=== PATIENT | female | born 1990 | race Caucasian/White ===

== ENCOUNTER 2017-01-18 09:17 | Day surgery (SDC) | payer MEDICAID, OTHER ==
[2017-01-17 08:17] VITALS: BMI 25.1
[~2017-01-18 09:17] MED LIST: LACTATED RINGERS 1,000 ML IV SCH
[2017-01-18 09:46] VITALS: RESP 16; TEMP 97
[2017-01-18] MEDS ORDERED: LIDOCAINE 1% INJ 10MG/ML (20 ML MDV) ONE (10:32)
[2017-01-18] MEDS ORDERED: PROPOFOL 10 MG/ML 20 ML VIAL IV ONE ×2 (10:32)
[2017-01-18 11:12] VITALS: BP 105/61; PULSE 68
--- NOTE | 2017-01-18 11:32 | P.PCN ---
Date of Procedure: 01/18/17 Procedure(s) Performed: BRIEF HISTORY: Patient is a 26-year-old pleasant white female, scheduled for an elective colonoscopy as a part of evaluation of intermittent rectal bleeding for the last 6 months duration. Her first cousin was recently diagnosed with colon cancer at age 32. Because of the ongoing rectal bleeding she is scheduled for colonoscopy to evaluate further. PROCEDURE PERFORMED: Colonoscopy snare polypectomy. PREOPERATIVE DIAGNOSIS: Intermittent rectal bleeding of 6 months duration. IV sedation per Anesthesia. PROCEDURE: After informed consent was obtained, the patient, was brought into the endoscopy unit. IV conscious sedation was administered by Anesthesia under continuous monitoring. Initially the Olympus CF-160 flexible video colonoscope was then inserted in the rectum, gradually advanced into the cecum without any difficulty. Careful examination was performed as the scope was gradually being withdrawn. Ileocecal valve and the appendiceal orifice were visualized and appeared normal. Prep was excellent. Mucosa of the cecum, ascending colon, appeared normal . In the proximal transverse colon there was a 2 cm flat/broad- based polyp that was removed by piecemeal snare polypectomy and complete polypectomy was accomplished. The transverse colon, descending colon, appeared normal. In the sigmoid colon at 35 to the medicine the anal verge there was a 3 cm pedunculated polyp that was removed by snare polypectomy. The rest of the sigmoid colon, and rectum appeared normal. Retroflexion was performed in the rectum and no lesions were seen. The patient tolerated the procedure well. IMPRESSION: 3 cm pedunculated sigmoid colon polyp status post polypectomy 2 cm broad-based transverse colon polyp status post polypectomy RECOMMENDATIONS: Findings of this examination were discussed with the patient as well as a family. She was advised to follow with the biopsy results. Based on the biopsy results will plan a repeat colonoscopy in 2 years.
== END 2017-01-18 11:49 | disposition home or self-care (01) ==
LOC: ORWHC2ENDO 09:17
PROVIDERS: ATTEND Internal Medicine Gastroenterology
DX: D12.5 Benign neoplasm of sigmoid colon (principal); D12.3 Benign neoplasm of transverse colon; Z87.19 Personal history of other diseases of the digestive system; Z80.0 Family history of malignant neoplasm of digestive organs; Z79.899 Other long term (current) drug therapy; Z88.1 Allergy status to other antibiotic agents
CPT/HCPCS: 81025; 88305; 45385; J2001; J2704

== ENCOUNTER → 2017-07-05 | Outpatient (CLI) | payer OTHER ==
--- NOTE | 2017-07-05 12:52 | US ---
EXAMINATION TYPE: US axilla extremity RT DATE OF EXAM: 07/05/2017 COMPARISON: NONE CLINICAL HISTORY: Localized swelling, mass and lump R22.9. Palpable x 2 weeks right axilla. US findings: Hyperechoic, oval, solid mass at patient's c/o palpable = 1.1 x 0.6 x 0.3cm and has lip jeri appearance by US. No flow is seen to this lesion. IMPRESSION: Circumscribed hyperechoic, avascular superficial subcutaneous 1.1 cm right axillary mass in the region of the patient's palpable abnormality is most sonographically consistent with a lipoma .
== END | disposition home or self-care (01) ==
LOC: RADUSWWP 12:12
PROVIDERS: ATTEND Internal Medicine
DX: R22.31 Localized swelling, mass and lump, right upper limb (principal)

== ENCOUNTER 2017-12-18 10:43 | Emergency (ER) | payer OTHER ==
[2017-12-18 11:06] VITALS: RESP 16
[2017-12-18 11:28] LABS: Appearance,Urine Clear (Clear); Bilirubin,Urine Negative (Negative); Blood,Urine Negative (Negative); Color,Urine Colorless; Glucose,Urine (UA) Negative (Negative); Ketones,Urine Negative (Negative); Leukocyte Esterase,Urine Negative (Negative); Nitrite,Urine Negative (Negative); Protein,Urine Negative (Negative); Specific Gravity,Urine 1.002 (1.001-1.035); Urobilinogen,Urine <2.0 mg/dL (<2.0)
--- NOTE | 2017-12-18 11:37 | ED ---
General Adult HPI - General Chief complaint: Back Pain/Injury Stated complaint: Abdominal pain, Time Seen by Provider: 12/18/17 11:24 Source: patient, RN notes reviewed Mode of arrival: ambulatory Limitations: no limitations - History of Present Illness Initial comments: Patient's a 27-year-old female who is G4, P3, presenting to the emergency room today with chief complaint of lower abdominal pain and back pain. She does admit that symptoms started 2 days ago. States going from work had increased abdominal pain the last 45 minutes. Since then went away. She states that she did check a test yesterday which was positive. She states that she felt this explains symptoms. 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 States she called her family doctor to make an appointment in the advised her to come here to the emergency room for evaluation. Patient denies any vaginal bleeding or discharge. She states she has not taken anything for pain. Has declined any pain medication. Patient denies any recent fever, chills, shortness of breath, chest pain, nausea or vomiting, numbness or tingling, dysuria or hematuria, constipation or diarrhea, headaches or visual changes, or any other complaints. - Related Data Home Medications Medication Instructions Recorded Confirmed Citalopram Hydrobromide [CeleXA] 10 mg PO DAILY 08/10/15 12/18/17 Allergies Allergy/AdvReac Type Severity Reaction Status Date / Time amoxicillin [Amoxicillin] Allergy Rash/Hives Verified 12/18/17 12:15 Review of Systems ROS Statement: Those systems with pertinent positive or pertinent negative responses have been documented in the HPI. ROS Other: All systems not noted in ROS Statement are negative. Past Medical History Past Medical History: Asthma Additional Past Medical History / Comment(s): occult blood in stool History of Any Multi-Drug Resistant Organisms: None Reported Past Surgical History: Orthopedic Surgery Additional Past Surgical History / Comment(s): ganglion cyst removed from L wrist Past Anesthesia/Blood Transfusion Reactions: No Reported Reaction Past Psychological History: Anxiety, Depression Smoking Status: Never smoker Past Alcohol Use History: None Reported Past Drug Use History: None Reported - Past Family History Father Family Medical History: No Reported History General Exam - General Exam Comments Initial Comments: General: The patient is awake and alert, in no distress, and does not appear acutely ill. Eye: Pupils are equal, round and reactive to light, extra-ocular movements are intact. No nystagmus. There is normal conjunctiva bilaterally. No signs of icterus. Ears, nose, mouth and throat: There are moist mucous membranes and no oral lesions. Neck: The neck is supple, there is no tenderness or JVD. Cardiovascular: There is a regular rate and rhythm. No murmur, rub or gallop is appreciated. Respiratory: Lungs are clear to auscultation, respirations are non-labored, breath sounds are equal. No wheezes, stridor, rales, or rhonchi. Gastrointestinal: Normal appearance of the abdomen. Normal bowel sounds. Soft on palpation. Patient does have mild tenderness lower abdomen. No rebound or guarding. No CVA tenderness. Musculoskeletal: Normal ROM, no tenderness. Strength 5/5. Sensation intact. Pulses equal bilaterally 2+. Neurological: A&O x 3. CN II-XII intact, There are no obvious motor or sensory deficits. Coordination appears grossly intact. Speech is normal. Skin: Skin is warm and dry and no rashes or lesions are noted. Psychiatric: Cooperative, appropriate mood & affect, normal judgment. Limitations: no limitations Course Vital Signs 12/18/17 11:02 Temperature 97.8 F Pulse Rate 77 Respiratory 16 Rate Blood Pressure 139/88 O2 Sat by Pulse 98 Oximetry Medical Decision Making - Medical Decision Making Patient reexamined at this time shows no signs of distress she is resting comfortably in the stretcher. Abdomen soft nontender on exam. Patient ultrasound shows no IUP. No free fluid. No direct evidence of ectopic. Patient's beta hCG is 270 today. Remaining blood work is unremarkable. At this time patient will be discharged home to have repeat beta hCG in the next 2 days. She is advised follow-up with her PHARMACY ASSOCIATE. She states she's Lenzmeier. Advised patient to return to emergency room for any increase or worsening of symptoms. Patient denies any vaginal bleeding or discharge at this time. Rh-. Patient states understanding and is in agreement. - Lab Data Result diagrams: 12/18/17 11:40 12/18/17 11:40 Lab Results 12/18/17 12/18/17 12/18/17 Range/Units 11:00 11:00 11:40 WBC 7.5 (3.8-10.6) k/uL RBC 4.94 (3.80-5.40) m/uL Hgb 14.4 (11.4-16.0) gm/dL Hct 42.8 (34.0-46.0) % MCV 86.7 (80.0-100.0) fL MCH 29.2 (25.0-35.0) pg MCHC 33.6 (31.0-37.0) g/dL RDW 12.9 (11.5-15.5) % Plt Count 294 (150-450) k/uL Neutrophils % 69 % Lymphocytes % 24 % Monocytes % 4 % Eosinophils % 1 % Basophils % 1 % Neutrophils # 5.1 (1.3-7.7) k/uL Lymphocytes # 1.8 (1.0-4.8) k/uL Monocytes # 0.3 (0-1.0) k/uL Eosinophils # 0.1 (0-0.7) k/uL Basophils # 0.0 (0-0.2) k/uL Sodium (137-145) mmol/L Potassium (3.5-5.1) mmol/L Chloride (98-107) mmol/L Carbon Dioxide (22-30) mmol/L Anion Gap mmol/L BUN (7-17) mg/dL Creatinine (0.52-1.04) mg/dL Est GFR (MDRD) Af Amer (>60 ml/min/1.73 sqM) Est GFR (MDRD) Non-Af (>60 ml/min/1.73 sqM) Glucose (74-99) mg/dL Calcium (8.4-10.2) mg/dL Total Bilirubin (0.2-1.3) mg/dL AST (14-36) U/L ALT (9-52) U/L Alkaline Phosphatase (38-126) U/L Total Protein (6.3-8.2) g/dL Albumin (3.5-5.0) g/dL HCG, Quant mIU/mL Urine Color Colorless Urine Appearance Clear (Clear) Urine pH 6.0 (5.0-8.0) Ur Specific Valders 1.002 (1.001-1.035) Urine Protein Negative (Negative) Urine Glucose (UA) Negative (Negative) Urine Ketones Negative (Negative) Urine Blood Negative (Negative) Urine Nitrite Negative (Negative) Urine Bilirubin Negative (Negative) Urine Urobilinogen <2.0 (<2.0) mg/dL Ur Leukocyte Esterase Negative (Negative) Urine HCG, Qual Detected (Not Detectd) Blood Type Blood Type Recheck 12/18/17 12/18/17 Range/Units 11:40 11:40 WBC (3.8-10.6) k/uL RBC (3.80-5.40) m/uL Hgb (11.4-16.0) gm/dL Hct (34.0-46.0) % MCV (80.0-100.0) fL MCH (25.0-35.0) pg MCHC (31.0-37.0) g/dL RDW (11.5-15.5) % Plt Count (150-450) k/uL Neutrophils % % Lymphocytes % % Monocytes % % Eosinophils % % Basophils % % Neutrophils # (1.3-7.7) k/uL Lymphocytes # (1.0-4.8) k/uL Monocytes # (0-1.0) k/uL Eosinophils # (0-0.7) k/uL Basophils # (0-0.2) k/uL Sodium 143 (137-145) mmol/L Potassium 3.8 (3.5-5.1) mmol/L Chloride 105 (98-107) mmol/L Carbon Dioxide 24 (22-30) mmol/L Anion Gap 14 mmol/L BUN 11 (7-17) mg/dL Creatinine 0.70 (0.52-1.04) mg/dL Est GFR (MDRD) Af Amer >60 (>60 ml/min/1.73 sqM) Est GFR (MDRD) Non-Af >60 (>60 ml/min/1.73 sqM) Glucose 91 (74-99) mg/dL Calcium 9.5 (8.4-10.2) mg/dL Total Bilirubin 0.4 (0.2-1.3) mg/dL AST 20 (14-36) U/L ALT 17 (9-52) U/L Alkaline Phosphatase 72 (38-126) U/L Total Protein 7.7 (6.3-8.2) g/dL Albumin 4.7 (3.5-5.0) g/dL HCG, Quant 270.2 mIU/mL Urine Color Urine Appearance (Clear) Urine pH (5.0-8.0) Ur Specific Valders (1.001-1.035) Urine Protein (Negative) Urine Glucose (UA) (Negative) Urine Ketones (Negative) Urine Blood (Negative) Urine Nitrite (Negative) Urine Bilirubin (Negative) Urine Urobilinogen (<2.0) mg/dL Ur Leukocyte Esterase (Negative) Urine HCG, Qual (Not Detectd) Blood Type O Negative Blood Type Recheck No Disposition Clinical Impression: Threatened Disposition: HOME SELF-CARE Condition: Good Instructions: Threatened Miscarriage (ED) Additional Instructions: Please have repeat lab work in 2 days. Please follow-up with PHARMACY ASSOCIATE over the next 1-2 days. Please return to emergency room if the symptoms increase or worsen or for any other concerns. Referrals: Julieta Mooney MD [Primary Care Provider] - 1-2 days Bryan Burleson MD [STAFF PHYSICIAN] - 1-2 days Time of Disposition: 13:09
[2017-12-18 11:56] LABS: Basophils % (A) 1 %; Eosinophils # (A) 0.1 k/uL (0-0.7); Eosinophils % (A) 1 %; HCT 42.8 % (34.0-46.0); HGB 14.4 gm/dL (11.4-16.0); Lymphocytes # (A) 1.8 k/uL (1.0-4.8); Lymphocytes % (A) 24 %; MCH 29.2 pg (25.0-35.0); MCHC 33.6 g/dL (31.0-37.0); MCV 86.7 fL (80.0-100.0); Mean Platelet Volume 6.7; Monocytes # (A) 0.3 k/uL (0-1.0); Monocytes % (A) 4 %; Neutrophils # (A) 5.1 k/uL (1.3-7.7); Neutrophils % (A) 69 %; Platelet Count 294 k/uL (150-450); RBC 4.94 m/uL (3.80-5.40); RDW 12.9 % (11.5-15.5); WBC 7.5 k/uL (3.8-10.6)
[2017-12-18 12:06] LABS: ALT 17 U/L (9-52); AST 20 U/L (14-36); Albumin 4.7 g/dL (3.5-5.0); Alkaline Phosphatase 72 U/L (38-126); Anion Gap 14 mmol/L; Blood Urea Nitrogen 11 mg/dL (7-17); Calcium 9.5 mg/dL (8.4-10.2); Carbon Dioxide 24 mmol/L (22-30); Chloride 105 mmol/L (98-107); Glucose 91 mg/dL (74-99); Potassium 3.8 mmol/L (3.5-5.1); Sodium 143 mmol/L (137-145); Total Bilirubin 0.4 mg/dL (0.2-1.3); Total Protein 7.7 g/dL (6.3-8.2)
[2017-12-18 12:22] LABS: HCG,Quantitative Serum 270.2 mIU/mL
--- NOTE | 2017-12-18 12:48 | US ---
EXAMINATION TYPE: US OB <=14 wks transvag DATE OF EXAM: 12/18/2017 COMPARISON: NONE CLINICAL HISTORY: 27-year-old female with Pain. Date of LMP: 11/21/17 Beta HcG (if available): Not available at this time EXAM PERFORMED: Transabdominal (TA) FINDINGS: EXAM MEASUREMENTS: GESTATIONAL AGE / DATING Physician Established: Not yet established Dates by LMP: (3 weeks/6 days) EDC: 08/28/18 Dates by First Scan: No previous, this is first scan Dates by Current Scan for: Unable to date by today's study MATERNAL ANATOMY Uterus: 9.2 x 6.3 x 4.7 Endometrium: Thickened to the upper limits of normal at 1.6 cm. Right Ovary: 2.6 x 1.5 x 1.8cm Left Ovary: 3.2 x 1.6 x 1.4cm Post CDS / Adnexa: wnl Presence of free fluid: no GESTATION / SURVEY IUP: No IUP seen at this time Thickened endometrium. IMPRESSION: 1. No visualized intrauterine at this time. Correlate with beta hCG values. Less than 2000 is below the threshold for transvaginal ultrasound detection. 2. In the setting of a positive test, the differential includes too early to visualize intr auterine , failed , and nonvisualized ectopic.
[2017-12-18 13:39] VITALS: BP 127/64; PULSE 71; TEMP 97.6
== END 2017-12-18 13:38 | disposition home or self-care (01) ==
LOC: EC 10:43
DX: O20.0 Threatened abortion (principal); O99.341 Other mental disorders complicating pregnancy, first trimester; F41.9 Anxiety disorder, unspecified; F32.9 Major depressive disorder, single episode, unspecified; Z3A.01 Less than 8 weeks gestation of pregnancy; Z88.0 Allergy status to penicillin; Z79.899 Other long term (current) drug therapy
CPT/HCPCS: 36415; 76801; 80053; 81003; 81025; 84702; 85025; 86900; 86901; 87086; 99284

== ENCOUNTER 2018-08-21 06:01 | Inpatient (IN) | payer OTHER ==
[2018-08-21] MEDS ORDERED: LIDOCAINE 1% INJ 10MG/ML (20 ML MDV) SQ PRN (06:18)
[2018-08-21] MEDS ORDERED: METHYLERGONOVINE 0.2 MG/ML 1 ML AMP IM PRN (06:18)
[2018-08-21] MEDS ORDERED: CARBOPROST TROMETHAMINE 250 MCG/ML 1 ML AMP IM PRN (06:18)
[2018-08-21] MEDS ORDERED: CLINDAMYCIN 900 MG in DEXTROSE 5% IN WATER 50 ML IVPB STA ×2 (06:18)
[2018-08-21] MEDS ORDERED: TERBUTALINE 1 MG/ML VIAL SQ PRN (06:18)
[2018-08-21] MEDS ORDERED: OXYTOCIN 10 UNIT/ML 1 ML VIAL IM PRN (06:18)
[2018-08-21] MEDS ORDERED: OXYTOCIN 20 UNITS/1000 ML NS 1,000 ML IV SCH ×2 (06:30→15:45)
[2018-08-21 06:33] VITALS: BMI 30.9
[2018-08-21 06:41] LABS: Basophils % (A) 0 %; Eosinophils # (A) 0.1 k/uL (0-0.7); Eosinophils % (A) 1 %; HCT 33.9 % (34.0-46.0); HGB 11.3 gm/dL (11.4-16.0); Lymphocytes # (A) 1.3 k/uL (1.0-4.8); Lymphocytes % (A) 23 %; MCHC 33.4 g/dL (31.0-37.0); MCV 80.9 fL (80.0-100.0); Mean Platelet Volume 8.1; Monocytes # (A) 0.3 k/uL (0-1.0); Monocytes % (A) 5 %; Neutrophils # (A) 3.9 k/uL (1.3-7.7); Neutrophils % (A) 68 %; Platelet Count 228 k/uL (150-450); Poikilocytosis Slight; RBC 4.19 m/uL (3.80-5.40); RDW 14.5 % (11.5-15.5); WBC 5.8 k/uL (3.8-10.6)
[2018-08-21] MEDS: LACTATED RINGERS 1,000 ML IV SCH ×2 (06:46→14:54)
[2018-08-21] MEDS ORDERED: BUTORPHANOL 1 MG/ML 1 ML VIAL IV PRN (08:40)
--- NOTE | 2018-08-21 08:45 | P.HPOB ---
History of Present Illness H&P Date: 08/21/18 Chief Complaint: 39-0/7 weeks, elective induction The patient is a 28-year-old 4 para 3003 admitted at 39-0/7 weeks as established by last menstrual period and confirmed by 8 week ultrasound. She is admitted for elective induction of labor secondary to social circumstances with a close family member having surgery at the beginning of next week in another state. Her has been uncomplicated and group B strep status is positive. She did have an positive antibody screen early in the for antiacid which is clinically of little importance and was negative at repeat antibody screen at 28 weeks. She is also known to be Rh- and received RhoGAM at 28 weeks. Obstetrical history: 4 para 3003 with 3 term vaginal deliveries without complications. Current statistics are listed in history present illness. EDC of 08/28/2018 was established by last menstrual period and confirmed by 8 week ultrasound. Laboratory workup done traits of blood type of O- with a positive initial antibody screen for anti-S which was not found at repeat 28 week check. Remainder of her laboratory workup was within normal limits. One hour Glucola was normal and group B strep status is positive. Gynecologic history: Unremarkable with no history of any infections to include STDs. Review of Systems Review of systems is confined to history of present illness. Past Medical History Past Medical History: Asthma, Supraventricular Tachycardia (SVT) Additional Past Medical History / Comment(s): occult blood in stool History of Any Multi-Drug Resistant Organisms: None Reported Past Surgical History: Orthopedic Surgery Additional Past Surgical History / Comment(s): ganglion cyst removed from L wrist. Colposcopy 2017. Past Anesthesia/Blood Transfusion Reactions: No Reported Reaction Past Psychological History: Anxiety, Depression Smoking Status: Never smoker Past Alcohol Use History: None Reported Past Drug Use History: None Reported - Past Family History Father Family Medical History: No Reported History, Hypertension Mother Family Medical History: Diabetes Mellitus, Hypertension Medications and Allergies Home Medications Medication Instructions Recorded Confirmed Type Citalopram Hydrobromide [CeleXA] 10 mg PO DAILY 08/10/15 08/21/18 History Omeprazole [PriLOSEC] 20 mg PO AC-BRKFST 08/21/18 08/21/18 History Allergies Allergy/AdvReac Type Severity Reaction Status Date / Time amoxicillin [Amoxicillin] Allergy Rash/Hives Verified 08/21/18 06:16 Exam Vital Signs Temp Pulse Resp BP Pulse Ox 08/21/18 06:16 97.7 F 105 H 18 120/79 100 Intake and Output 08/20/18 08/21/18 08/21/18 22:59 06:59 14:59 Other: Weight 100.698 kg In general, this is a well-developed, well-nourished white female in no acute distress. Her heart has a regular rhythm and rate without murmur. Her lungs are clear to auscultation bilaterally in all sal. Her abdomen is gravid, nondistended, has normal active bowel sounds, is soft, nontender, and without any palpable masses aside from the uterine fundus. Her extremities are without any cyanosis, clubbing, or significant edema and are nontender to palpation bilaterally. Digital cervical examination on straights her sugars to be 3 cm dilated, approximate 60% effaced, with the vertex in presentation at -2 station. Artificial rupture of membranes is carried out demonstrating clear fluid. Results Result Diagrams: 08/21/18 06:35 Abnormal Lab Results - Last 24 Hours (Table) 08/21/18 Range/Units 06:35 Hgb 11.3 L (11.4-16.0) gm/dL Hct 33.9 L (34.0-46.0) % Assessment and Plan (1) Group B streptococcal infection in Current Visit: Yes Status: Acute Code(s): O98.819 - OTH MATERNAL INFEC/ PARASTC DISEASES COMP PREG, UNSP TRI; B95.1 - STREPTOCOCCUS, GROUP B, CAUSING DISEASES CLASSD ELSR SNOMED Code(s): 067583146 (2) Term Current Visit: Yes Status: Acute Code(s): Z34.80 - ENCOUNTER FOR SUPRVSN OF NORMAL , UNSP TRIMESTER SNOMED Code(s): 98145400 Plan: The patient has been admitted for Pitocin induction. Antibody prophylaxis has been started for group B strep. She has undergone artificial rupture of membranes. She will continue to have close maternal and surveillance and expectant management will be practiced. She is a good candidate for either IV or epidural analgesia should she so choose.
[2018-08-21] MEDS ORDERED: CLINDAMYCIN 900 MG in DEXTROSE 5% IN WATER 50 ML IVPB SCH ×2 (14:00)
[2018-08-21] MEDS ORDERED: HYDROCORTISONE 2.5% RECTAL CREAM 30 GM TUBE RECTAL PRN (15:38)
[2018-08-21] MEDS ORDERED: ZOLPIDEM 5 MG TAB PO PRN (15:38)
[2018-08-21] MEDS ORDERED: diphenhydrAMINE 50 MG/ML 1 ML VIAL IVP PRN ×2 (15:38)
[2018-08-21] MEDS ORDERED: diphenhydrAMINE 25 MG CAP PO PRN (15:38)
[2018-08-21] MEDS ORDERED: HYDROcodone/APAP 7.5-325MG 1 EACH TAB PO PRN (15:38)
[2018-08-21] MEDS ORDERED: SIMETHICONE 80 MG CHEWABLE PO PRN (15:38)
[2018-08-21] MEDS ORDERED: LANOLIN CREAM 5 GM TUBE TOPICAL PRN (15:38)
[2018-08-21] MEDS ORDERED: HYDROcodone/APAP 5-325MG 1 EACH TAB PO PRN (15:38)
[2018-08-21] MEDS ORDERED: diphenhydrAMINE 50 MG CAP PO PRN (15:38)
[2018-08-21] MEDS ORDERED: BENZOCAINE/MENTHOL SPRAY 1 GM/SPRAY AEROSOL TOPICAL PRN (15:38)
[2018-08-21] MEDS ORDERED: WITCH HAZEL 1 EACH MED..PAD TOPICAL PRN (15:38)
[2018-08-21] MEDS ORDERED: IBUPROFEN 600 MG TAB PO PRN (15:38)
[2018-08-21] MEDS ORDERED: ACETAMINOPHEN TAB 325 MG TAB PO PRN (15:38)
--- NOTE | 2018-08-21 15:41 | P.PROBDLV ---
Vaginal Delivery Note - . Vaginal Delivery Note: The patient is a 28-year-old 4 para 3003 admitted at 39-0/7 weeks by good dating parameters. She is admitted for elective induction of labor secondary to social circumstances with a surgery in the family in another town at the beginning of next week. Her has been uncomplicated though she is Rh- and received RhoGAM at 28 weeks. She additionally was found to be group B strep positive. On labor and delivery, all signs reassuring. Pitocin augmentation was started as was antibody prophylaxis for group B strep. She went underwent artificial rupture of membranes demonstrating clear fluid. She made relatively slow progress through the latent phase of labor and then progressed quickly through the active phase of labor to complete at which time she pushed over the course of approximately 2 contractions to a normal spontaneous vaginal delivery of a viable 8 lbs. 11 oz. baby boy with Apgars of 8 at 1 minute and 9 at 5 minutes delivered in the right occiput anterior position. There was a loose nuchal cord 1 which was reduced following delivery of the infant. The placenta was delivered spontaneously, intact, and grossly normal with a grossly normal, centrally inserted three-vessel cord. A very small first-degree midline perineal laceration was noted and was repaired with a single [id number] stitch of 3-0 chromic catgut. Estimated blood loss for the case is approximately 350 mL. There were no complications. All sponge, instrument, and needle counts were correct. Both mother and are resting comfortably in recovery.
[2018-08-22] MEDS: SENNOSIDES-DOCUSATE SODIUM 1 EACH TAB PO SCH ×2 (01:09→08:00)
[2018-08-22 08:47] LABS: Basophils % (A) 0 %; Eosinophils # (A) 0.1 k/uL (0-0.7); Eosinophils % (A) 1 %; HCT 36.1 % (34.0-46.0); HGB 11.3 gm/dL (11.4-16.0); Hypochromasia Slight; Lymphocytes # (A) 1.4 k/uL (1.0-4.8); Lymphocytes % (A) 16 %; MCHC 31.3 g/dL (31.0-37.0); MCV 83.2 fL (80.0-100.0); Mean Platelet Volume 8.5; Monocytes # (A) 0.4 k/uL (0-1.0); Monocytes % (A) 4 %; Neutrophils # (A) 6.8 k/uL (1.3-7.7); Neutrophils % (A) 77 %; Platelet Count 238 k/uL (150-450); RBC 4.35 m/uL (3.80-5.40); RDW 14.5 % (11.5-15.5); WBC 8.8 k/uL (3.8-10.6)
[2018-08-22 10:03] VITALS: BP 120/70; PULSE 100; RESP 18; TEMP 98.2
--- NOTE | 2018-08-22 11:03 | P.DS ---
Providers Date of admission: 08/21/18 06:01 Expected date of discharge: 08/22/18 Attending physician: Bryan Burleson Primary care physician: Stated None - Discharge Diagnosis(es) (1) Group B streptococcal infection in Current Visit: Yes Status: Acute (2) Term Current Visit: Yes Status: Acute (3) Normal spontaneous vaginal delivery Current Visit: Yes Status: Acute Hospital Course: The patient is a 28-year-old 4 para 3003 admitted at 39-0/7 weeks by good dating parameters for elective induction of labor. Her has been uncomplicated though she is Rh- and received RhoGAM at 28 weeks. Group B strep status is positive. On labor and delivery, she had Pitocin started as well as antibody prophylaxis for group B strep. She underwent artificial rupture of membranes for clear fluid and then made relatively slow progress through the latent phase and then quickly progressed to the active phase of labor to complete. She pushed fairly quickly to a normal spontaneous vaginal delivery of a viable 8 lbs. 11 oz. baby boy with Apgars of 8 at 1 minute and 9 at 5 minutes. Her post course was unremarkable with vital signs being stable and her temperature was afebrile throughout. She was deemed stable for discharge on day #1 was discharged home to follow-up in the office in 6 weeks' time routinely. Discharge instructions included calling for any significantly increased bleeding or foul-smelling lochia, significantly increased fever abdominal pain, perineal complaints, breast complaints, or anything else that concerned her. She was additionally instructed to have nothing in the vagina for at least 6 weeks time to include intercourse. She understood her instructions and agrees to follow up as noted above. Discharge medications included only continue vitamins as she has opted to breast- feed as well as [id number] analgesic pain medications. Maternal blood type is O- and cord blood was sent for evaluation for the necessity of RhoGAM prior to discharge. Rubella status is immune. Procedures: #1. Pitocin induction #2. Antibiotic prophylaxis #3. Artificial rupture of membranes #4. Normal spontaneous vaginal delivery #5. Repair of perineal laceration Patient Condition at Discharge: Good Plan - Discharge Summary New Discharge Prescriptions: No Action Citalopram Hydrobromide [CeleXA] 10 mg PO DAILY Omeprazole [PriLOSEC] 20 mg PO AC-BRKFST Discharge Medication List Citalopram Hydrobromide [CeleXA] 10 mg PO DAILY 08/10/15 [History] Omeprazole [PriLOSEC] 20 mg PO AC-BRKT 08/21/18 [History] Follow up Appointment(s)/Referral(s): Bryan Burleson MD [STAFF PHYSICIAN] - 6 Weeks Discharge Disposition: HOME SELF-CARE
[2018-08-22] MEDS ORDERED: Rhogam IMMUNE GLOBULIN 1,500 UNIT/1 ML IM ONE (15:24)
== END 2018-08-22 17:25 | disposition home or self-care (01) | DRG 807 ==
LOC: 4FBP 06:01
PROVIDERS: ADMIT Obstetrics & Gynecology; ATTEND Obstetrics & Gynecology
PROC: 0HQ9XZZ Repair Perineum Skin, External Approach (ICD-10-PCS; principal; 2018-08-21)
PROC: 10E0XZZ Delivery of Products of Conception, External Approach (ICD-10-PCS; principal; 2018-08-21)
PROC: 3E033VJ Introduction of Other Hormone into Peripheral Vein, Percutaneous Approach (ICD-10-PCS; principal; 2018-08-21)
PROC: 10907ZC Drainage of Amniotic Fluid, Therapeutic from Products of Conception, Via Natural or Artificial Opening (ICD-10-PCS; principal; 2018-08-21)
DX: O69.81X0 Labor and delivery complicated by cord around neck, without compression, not applicable or unspecified (principal); Z37.0 Single live birth; O99.824 Streptococcus B carrier state complicating childbirth; F32.9 Major depressive disorder, single episode, unspecified; F41.9 Anxiety disorder, unspecified; O99.344 Other mental disorders complicating childbirth; Z79.899 Other long term (current) drug therapy; Z88.1 Allergy status to other antibiotic agents; Z3A.39 39 weeks gestation of pregnancy; O70.0 First degree perineal laceration during delivery
CPT/HCPCS: 85025; 85461; 86850; 86900; 86901

== ENCOUNTER → 2019-12-17 | Outpatient (CLI) | payer OTHER ==
--- NOTE | 2019-12-17 16:53 | XR ---
EXAMINATION TYPE: XR shoulder complete RT DATE OF EXAM: 12/17/2019 CLINICAL HISTORY: Right shoulder pain after injury. TECHNIQUE: Three views of the right shoulder are obtained. COMPARISON: Right humeral x-ray August 19, 2014 FINDINGS: There is no acute fracture/dislocation evident in the right shoulder. The acromioclavicul ar and glenohumeral joint spaces appear within normal limits. The visualized ribs are intact and unr emarkable. IMPRESSION: There is no acute fracture or dislocation in the right shoulder.
== END | disposition home or self-care (01) ==
LOC: RAD 16:09
PROVIDERS: ATTEND Emergency Medicine
DX: S46.011A Strain of muscle(s) and tendon(s) of the rotator cuff of right shoulder, initial encounter (principal)

== ENCOUNTER → 2019-12-24 | Outpatient (CLI) | payer OTHER ==
--- NOTE | 2019-12-24 10:54 | XR ---
Cervical spine HISTORY: Neck pain, injury one week prior 5 views of the cervical spine, correlation to prior cervical spine dated 03/21/2011 There is straightening of the normal cervical lordosis possibly due to underlying muscle spasm. Cervi carrington vertebral bodies show preserved height, alignment, bone mineralization. Prevertebral soft tissues and disc spaces are maintained. No evident foraminal encroachment. There may be a spinal curvature i n the thoracic spine. IMPRESSION: No fracture or subluxation, additional findings above
== END | disposition home or self-care (01) ==
LOC: RADXRMAIN 10:10
PROVIDERS: ATTEND Emergency Medicine
DX: M54.2 Cervicalgia (principal)
CPT/HCPCS: 72050

== ENCOUNTER → 2019-12-24 | Outpatient (CLI) | payer OTHER ==
[2019-12-24 10:33] LABS: Basophils % (A) 0 %; Eosinophils # (A) 0.2 k/uL (0-0.7); Eosinophils % (A) 2 %; HCT 42.3 % (34.0-46.0); HGB 14.3 gm/dL (11.4-16.0); Lymphocytes # (A) 1.9 k/uL (1.0-4.8); Lymphocytes % (A) 25 %; MCH 29.7 pg (25.0-35.0); MCHC 33.7 g/dL (31.0-37.0); MCV 88.2 fL (80.0-100.0); Mean Platelet Volume 7.5; Monocytes # (A) 0.3 k/uL (0-1.0); Monocytes % (A) 4 %; Neutrophils # (A) 5.2 k/uL (1.3-7.7); Neutrophils % (A) 67 %; Platelet Count 264 k/uL (150-450); RDW 12.8 % (11.5-15.5); WBC 7.7 k/uL (3.8-10.6)
[2019-12-24 16:58] LABS: African American GFR (CKD) 98.7 (60.0-200.0); Albumin 4.4 g/dL (3.80-4.90); Albumin/Globulin Ratio 2.2 (1.60-3.17); Anion Gap 5.6 mmol/L (4.00-12.00); BUN/Creat Ratio 15.56 Ratio (12.00-20.00); Calcium 8.9 mg/dL (8.7-10.3); Carbon Dioxide 26.4 mmol/L (21.6-31.8); Chol/HDL Ratio 2.87; LDL Cholesterol,Calculated 63.4 mg/dL (0.0-131.0); Non-African American GFR(CKD) 85.2 (60.0-200.0); Potassium 4.3 mmol/L (3.5-5.5); Total Bilirubin 0.6 mg/dL (0.3-1.2); Total Protein 6.4 g/dL (6.2-8.2); VLDL Calculation 22.6 mg/dL (5.00-40.00)
== END | disposition home or self-care (01) ==
LOC: LABWHC1 09:33
PROVIDERS: ATTEND Internal Medicine
DX: K63.5 Polyp of colon (principal); F32.9 Major depressive disorder, single episode, unspecified; E78.2 Mixed hyperlipidemia; R00.2 Palpitations
CPT/HCPCS: 36415; 80053; 80061; 83036; 84443; 85025

== ENCOUNTER 2020-07-20 06:57 | Day surgery (SDC) | payer OTHER ==
[2020-07-18 09:25] VITALS: BMI 25.9
[2020-07-20 07:19] VITALS: TEMP 98
[2020-07-20] MEDS ORDERED: LIDOCAINE 1% INJ 10MG/ML (20 ML MDV) ONE (08:23)
[2020-07-20] MEDS ORDERED: PROPOFOL 10 MG/ML 20 ML VIAL IV ONE (08:23)
--- NOTE | 2020-07-20 08:45 | P.PCN ---
Date of Procedure: 07/20/20 Procedure(s) Performed: Brief history: Patient is a pleasant 29-year-old white male scheduled for an elective upper endoscopy as well as colonoscopy as a part of evaluation of GERD and history of colon polyps. She also has family history of colon cancer diagnosed in her first cousin at age 32. Her last colonoscopy was in 2017 and was noted to have a large polyps both of which revealed serrated adenoma. Procedure performed: Esophagogastroduodenoscopy Colonoscopy with snare polypectomy Preoperative diagnosis: GERD History of colon polyps and family history of colon cancer Anesthesia: MAC Procedure: After informed consent was obtained from the patient was brought into the endoscopy unit and IV sedation was administered by anesthesia under continuous monitoring. Initially upper endoscopy was done. The Olympus GF 160 video endoscope was inserted inserted into the mouth and esophagus intubated without any difficulty and was gradually advanced into the stomach and duodenum and carefully examined. The bulb and second part of the duodenum appeared normal. The scope was then withdrawn into the stomach adequately insufflated with air and upon careful examination the antrum had mild gastritis. The body, cardia and fundus appeared normal. The scope was then withdrawn into the esophagus. The GE junction was located at 40 cm to the incisors. It appeared regular with no erythema erosions or ulcerations. Rest of the esophagus appeared normal. Patient tolerated the procedure well. At this time the patient continued to remain sedation. Initial digital rectal examination was normal. Olympus CF 160 video colonoscope was then inserted into the rectum and gradually advanced to the cecum without any difficulty. Careful examination was performed as the scope was gradually being withdrawn. The prep was excellent. The cecum, ascending colon, transverse colon, descending colon appeared normal. In the sigmoid colon at 30 cm from the anal was there was a 1 cm polyp that was removed by snare polypectomy. Rest of the, sigmoid colon and rectum appeared normal. Retroflexion was performed in the rectum and no lesions were noted. Patient tolerated the procedure well. Impression: 1. Upper endoscopy revealed minimal antral gastritis and a small hiatal hernia. 2. Colonoscopy revealed a 1 cm broad-based sigmoid colon polyp status post polypectomy Recommendations: Findings of this examination were discussed with the patient as well as as a family. She was advised to follow with the biopsy results. If the biopsy shows an adenoma she can have a repeat colonoscopy in 3 years..
[2020-07-20 09:06] VITALS: BP 108/64; PULSE 52; RESP 16
== END 2020-07-20 09:27 | disposition home or self-care (01) ==
LOC: ORWHC2ENDO 06:57
PROVIDERS: ATTEND Internal Medicine Gastroenterology
DX: Z12.11 Encounter for screening for malignant neoplasm of colon (principal); K63.5 Polyp of colon; Z86.010 Personal history of colon polyps; K29.70 Gastritis, unspecified, without bleeding; K44.9 Diaphragmatic hernia without obstruction or gangrene; K21.9 Gastro-esophageal reflux disease without esophagitis; F41.9 Anxiety disorder, unspecified; K08.89 Other specified disorders of teeth and supporting structures; J45.909 Unspecified asthma, uncomplicated; Z79.899 Other long term (current) drug therapy; Z86.79 Personal history of other diseases of the circulatory system; Z88.0 Allergy status to penicillin; Z98.890 Other specified postprocedural states; Z80.0 Family history of malignant neoplasm of digestive organs
CPT/HCPCS: 81025; 88305; 45385; 43235; J2001; J2704

== ENCOUNTER → 2021-05-19 | Outpatient (CLI) | payer OTHER ==
[2021-05-19 07:37] LABS: Basophils % (A) 1 %; Eosinophils # (A) 0.2 k/uL (0-0.7); Eosinophils % (A) 3 %; HCT 41.6 % (34.0-46.0); HGB 14.3 gm/dL (11.4-16.0); Lymphocytes # (A) 1.9 k/uL (1.0-4.8); Lymphocytes % (A) 32 %; MCH 30.3 pg (25.0-35.0); MCHC 34.5 g/dL (31.0-37.0); Mean Platelet Volume 7.1; Monocytes # (A) 0.3 k/uL (0-1.0); Monocytes % (A) 6 %; Neutrophils # (A) 3.5 k/uL (1.3-7.7); Neutrophils % (A) 58 %; Platelet Count 294 k/uL (150-450); RBC 4.73 m/uL (3.80-5.40); RDW 12.4 % (11.5-15.5); WBC 6.1 k/uL (3.8-10.6)
== END | disposition home or self-care (01) ==
LOC: LABPAT 07:06
PROVIDERS: ATTEND Obstetrics & Gynecology
DX: Z01.812 Encounter for preprocedural laboratory examination (principal); N92.1 Excessive and frequent menstruation with irregular cycle
CPT/HCPCS: 36415; 85025

== ENCOUNTER 2021-05-23 06:48 | Day surgery (SDC) | payer OTHER ==
[2021-05-18 14:05] VITALS: BMI 27.8
--- NOTE | 2021-05-18 15:53 | HP ---
HISTORY AND PHYSICAL REASON FOR ADMISSION: Surgery scheduled on May 23. HISTORY OF PRESENT ILLNESS: The patient is a 30-year-old 4, para 4-0-0-4, who presents to the office complaining of significant cycle irregularity for over a year and it is occasionally very heavy, often times twice a month. She has bled through protection on several occasions. Her has a vasectomy in place. She has been tried on 3 different oral contraceptive pills, which have failed to control bleeding and does not want to continue with further attempts at hormonal manipulation as she has a family history of DVT of uncertain origin. She has requested diagnostic hysteroscopy with NovaSure endometrial ablation. PAST MEDICAL HISTORY: Significant for psoriasis and exercise-induced asthma. She also had mild depression in the past. SURGICAL HISTORY: She had colonoscopy with polypectomy in 2000, and history of left ganglion cyst, wrist surgery. There were no anesthetic concerns. OBSTETRICAL HISTORY: 4, para 4-0-0-4 with 4 term vaginal deliveries without complications. Current method of contraception is vasectomy. GYNECOLOGIC HISTORY: Unremarkable with no history of any infections to include STDs. FAMILY HISTORY: Noncontributory. 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 She is a nonsmoker and denies any significant alcohol or any other social concerns. CURRENT MEDICATIONS: Include Junel 24 one p.o. daily, Celexa 20 mg daily, multivitamin daily, and albuterol inhaler as needed. ALLERGIES: AMOXICILLIN caused hives. REVIEW OF SYSTEMS: Confined to history of present illness. PHYSICAL EXAMINATION: In general, this is a well-developed, well-nourished white female in no acute distress. Her heart has a regular rhythm and rate without murmur. Her lungs are clear to auscultation bilaterally in all sal. Her abdomen is nondistended, has normoactive bowel sounds, soft, nontender, and without any apparent masses, hepatosplenomegaly, or hernias. Her extremities are without any cyanosis, clubbing, or edema and are nontender to palpation bilaterally. Pelvic examination demonstrates normal external genitalia and BUS with normal vaginal mucosa and cervix. There is no cervical motion tenderness. Uterus is 5 weeks in size, retroverted, mobile, nontender, normal in shape. The adnexa are normal and nontender without mass bilaterally. Endometrial biopsy performed during the examination demonstrated benign findings. ASSESSMENT AND PLAN: Menometrorrhagia: The patient has requested diagnostic hysteroscopy with NovaSure endometrial ablation having failed multiple attempts at hormonal intervention. Risks and complications of the procedure have been thoroughly discussed including risk for bleeding, bleeding requiring transfusion, infection, and injury to local structures to specifically include uterine perforation, Asherman syndrome, and subsequent hematometra. She has understood all this and agreed to proceed and is scheduled for the morning of May 23 for the procedures as outlined above. MMODL / IJN: [id number] /
[~2021-05-23 06:48] MED LIST changes: -LACTATED RINGERS 1,000 ML IV SCH; +Pre Op ABX Message 1 EACH MISC MISCELLANE ONE
[2021-05-23] MEDS ORDERED: LACTATED RINGERS 1,000 ML IV ONE (07:12)
[2021-05-23] MEDS ORDERED: ONDANSETRON 4 MG/2 ML VIAL ONE (07:13)
[2021-05-23] MEDS ORDERED: ONDANSETRON 4 MG/2 ML VIAL IVP ONE (07:15)
[2021-05-23] MEDS ORDERED: DEXAMETHASONE SOD PHOSPHATE 4 MG/ML 1 ML VIAL IVP ONE (07:15)
[2021-05-23] MEDS ORDERED: SCOPOLAMINE 1.5MG/72HR PATCH TRANSDERM ONE (07:17)
[2021-05-23] MEDS ORDERED: MIDAZOLAM 2 MG/2 ML VIAL IV ONE ×2 (07:38)
[2021-05-23] MEDS ORDERED: fentaNYL (PF) 50 MCG/ML 2 ML AMP ONE (08:05)
[2021-05-23] MEDS ORDERED: PROPOFOL 10 MG/ML 20 ML VIAL IV ONE (08:05)
[2021-05-23] MEDS ORDERED: KETOROLAC 15 MG/ML 1 ML VIAL ONE (08:05)
[2021-05-23] MEDS ORDERED: MIDAZOLAM 2 MG/2 ML VIAL ONE (08:05)
[2021-05-23] MEDS ORDERED: LIDOCAINE 1% INJ 10MG/ML (20 ML MDV) ONE (08:05)
[2021-05-23] MEDS ORDERED: SIMETHICONE 80 MG CHEWABLE PO PRN (08:48)
[2021-05-23] MEDS ORDERED: METOCLOPRAMIDE 5 MG/ML 2 ML VIAL IVP PRN (08:48)
[2021-05-23] MEDS ORDERED: Acetaminophen-Codeine 300-30mg TAB PO PRN ×2 (08:48)
[2021-05-23] MEDS ORDERED: diphenhydrAMINE 50 MG/ML 1 ML VIAL IVP PRN (08:48)
[2021-05-23] MEDS ORDERED: KETOROLAC 15 MG/ML 1 ML VIAL IVP PRN (08:48)
[2021-05-23] MEDS ORDERED: IBUPROFEN 600 MG TAB PO PRN (08:48)
[2021-05-23] MEDS ORDERED: ONDANSETRON 4 MG/2 ML VIAL IVP PRN (08:48)
[2021-05-23 08:55] VITALS: TEMP 97.1
--- NOTE | 2021-05-23 08:55 | P.OP ---
Date of Procedure: 05/23/21 Preoperative Diagnosis: 1. Menometrorrhagia Postoperative Diagnosis: Same Procedure(s) Performed: #1. Diagnostic hysteroscopy #2. Dilation and curettage #3. NovaSure endometrial ablation Anesthesia: other (Gen. by LMA) Surgeon: Bryan Burleson Estimated Blood Loss (ml): 5 IV fluids (ml): 300 Urine output (ml): 150 Pathology: other (Endometrial curettings, possible polyp) Condition: stable Disposition: PACU Operative Findings: Preoperative pelvic examination demonstrated a roughly 5 week midplane to slightly anteverted mobile normal shaped uterus with normal adnexa bilaterally. Intraoperatively, the cervix was approximate 3.5 cm with the uterus measuring a total of 9 cm. Using the hysteroscope, the bilateral tubal ostia were seen. There were a number of polypoid-like structures in the midportion of the endometrial cavity leading to the decision to perform curettage. On curettage, moderate amount of tissue was produced with polypoid-like structures noted. The settings for the NovaSure tool where a length of 5.5 cm, a width of 4.7 cm for a total power 142 W. After a total run time of 49 seconds, the base unit read "procedure complete." The postprocedural result appeared to be excellent. The patient is a candidate for vaginal hysterectomy should become necessary in the near future. Description of Procedure: The patient was prepped and draped in usual fashion after general anesthesia was administered by the anesthesiologist. A weighted speculum was placed and the bladder drained of approximately 150 mL of clear angel urine. The anterior lip of the cervix was grasped with a single-tooth tenaculum and uterus sounded to 9 cm with a cervical length of 3.5 cm. Serial dilation was carried out to admit the diagnostic hysteroscope which was placed into the uterus and the cavity distended with saline. The findings are as noted above with bilateral tubal ostia noted. There was a moderate amount of shaggy polypoid type tissue in the midsection of the myometrium cavity leading to the decision for curettage. The scope was then set aside and a medium sharp curet introduced into the initial cavity and a Telfa placed in the vagina. Thorough and circumferential curettage was carried out onto a Telfa in the vagina. A moderate amount of tissue, some polypoid in nature, was delivered onto the Telfa and sent to pathology for evaluation. The NovaSure tool was in place within the in vitro cavity, opened, and seated well. The settings are as noted above with a length of 5.57 m, a width of 4.7 cm for total power 142 W. The cavity check was attempted and passed without difficulty. The tool was enabled and the run was started. After a total run time of 49 seconds, the base unit read "procedure complete." The tool was removed and discarded. The diagnostic scope was replaced within the endometrial cavity and the results appeared to be excellent. The patient is a potential candidate for vaginal hysterectomy should it become necessary. There additionally is a grade 2-3 cystocele present.
[2021-05-23] MEDS ORDERED: LACTATED RINGERS 1,000 ML IV SCH (09:00)
[2021-05-23 11:20] VITALS: BP 128/82; PULSE 79; RESP 16
== END 2021-05-23 11:24 | disposition home or self-care (01) ==
LOC: OR 06:48
PROVIDERS: ATTEND Obstetrics & Gynecology
DX: N92.1 Excessive and frequent menstruation with irregular cycle (principal); L40.9 Psoriasis, unspecified; J45.909 Unspecified asthma, uncomplicated; F32.9 Major depressive disorder, single episode, unspecified; Z79.899 Other long term (current) drug therapy; Z88.0 Allergy status to penicillin
CPT/HCPCS: 58563; 81025; 88305; J2250; J1100; J2405; J2001; J3010; J1885; J2704

== ENCOUNTER → 2022-04-13 | Outpatient (CLI) | payer OTHER ==
--- NOTE | 2022-04-13 08:23 | US ---
EXAMINATION TYPE: US gallbladder DATE OF EXAM: 04/13/2022 COMPARISON: US 2013 CLINICAL HISTORY: R10.11 RIGHT UPPER QUAD PAIN. RUQ pain. EXAM MEASUREMENTS: Liver Length: 16.4 cm Gallbladder Wall: 0.19 cm CBD: 0.38 cm Right Kidney: 11.8 x 5.1 x 4.9 cm Limited due to gas. Pancreas: Limited visibility of tail. Liver: No abnormalities seen. Gallbladder: Appears enlarged measuring 10.3 cm in length. Evidence for sonographic Butler's sign: No CBD: Portions seen appear wnl Right Kidney: No hydronephrosis or masses seen IMPRESSION: No shadowing mobile gallstones or ultrasound evidence for acute cholecystitis.
== END | disposition home or self-care (01) ==
LOC: RADUSWWP 07:41
PROVIDERS: ATTEND Surgery
DX: R10.11 Right upper quadrant pain (principal)
CPT/HCPCS: 76705

== ENCOUNTER → 2023-04-05 | Outpatient (CLI) | payer BC, MEDICAID ==
[2023-04-05 15:19] LABS: Basophils # (A) 0.04 X 10*3/uL (0.00-0.10); Basophils % (A) 0.7 %; Eosinophils # (A) 0.15 X 10*3/uL (0.04-0.35); Eosinophils % (A) 2.7 %; HCT 43.4 % (37.2-46.3); HGB 14.4 g/dL (12.0-15.0); Immature Grans, Automated 0.2 %; Lymphocytes # (A) 1.68 X 10*3/uL (0.90-5.00); Lymphocytes % (A) 30.4 %; MCH 29.7 pg (27.0-32.0); MCHC 33.2 g/dL (32.0-37.0); MCV 89.5 fL (80.0-97.0); Mean Platelet Volume 10.2 fL (9.5-12.2); Monocytes # (A) 0.38 X 10*3/uL (0.20-1.00); Monocytes % (A) 6.9 %; NRBC Per 100 WBC 0 /100 WBCS (0.0-0.0); Neutrophils # (A) 3.26 X 10*3/uL (1.80-7.70); Neutrophils % (A) 59.1 %; Platelet Count 283 X 10*3/uL (140-440); RBC 4.85 X 10*6/uL (4.10-5.20); RDW 12.8 % (11.5-14.5); WBC 5.52 X 10*3/uL (4.50-10.00)
[2023-04-05 15:43] LABS: ALT 8 U/L (8-44); AST 19 U/L (13-35); African American GFR (CKD) 101.6 (60.0-200.0); Albumin 4.5 g/dL (3.8-4.9); Albumin/Globulin Ratio 1.97 (1.60-3.17); Alkaline Phosphatase 68 U/L (41-126); BUN/Creat Ratio 15.86 Ratio (12.00-20.00); Blood Urea Nitrogen 13.7 mg/dL (9.0-27.0); Calcium 9.2 mg/dL (8.7-10.3); Carbon Dioxide 23.3 mmol/L (20.0-27.5); Chloride 105 mmol/L (96-109); Chol/HDL Ratio 3.04 Ratio; Follicle Stimulating Hormone 4.1 mIU/mL; Globulin 2.3 g/dL (1.6-3.3); Glucose 102 mg/dL (70-110); LDL Cholesterol,Calculated 75.5 mg/dL (0.0-131.0); Non-African American GFR(CKD) 87.6 (60.0-200.0); Potassium 4.2 mmol/L (3.5-5.5); Sodium 141 mmol/L (135-145); Total Protein 6.8 g/dL (6.2-8.2)
[2023-04-05 21:20] LABS: Luteinizing Hormone 3.7 mIU/mL
== END | disposition home or self-care (01) ==
LOC: LABWHC1 07:55
PROVIDERS: ATTEND Internal Medicine
DX: F90.0 Attention-deficit hyperactivity disorder, predominantly inattentive type (principal); F41.9 Anxiety disorder, unspecified; R23.2 Flushing
CPT/HCPCS: 36415; 80053; 80061; 83001; 83002; 84439; 84443; 85025

== ENCOUNTER → 2024-08-14 | Outpatient (CLI) | payer MEDICAID, BC ==
[2024-08-14 11:09] LABS: Basophils # (A) 0.05 X 10*3/uL (0.00-0.10); Basophils % (A) 0.7 %; Eosinophils # (A) 0.09 X 10*3/uL (0.04-0.35); Eosinophils % (A) 1.3 %; HCT 43.4 % (37.2-46.3); HGB 14.9 g/dL (12.0-15.0); Lymphocytes # (A) 1.54 X 10*3/uL (0.90-5.00); Lymphocytes % (A) 21.9 %; MCH 30.5 pg (27.0-32.0); MCHC 34.3 g/dL (32.0-37.0); MCV 88.9 FL (80.0-97.0); Mean Platelet Volume 10.3 FL (9.5-12.2); Monocytes # (A) 0.53 X 10*3/uL (0.20-1.00); Monocytes % (A) 7.5 %; NRBC Per 100 WBC 0 X 10*3/uL (0.00-0.01); Neutrophils # (A) 4.82 X 10*3/uL (1.80-7.70); Neutrophils % (A) 68.5 %; Platelet Count 328 X 10*3/uL (140-440); RBC 4.88 X 10*6/uL (4.10-5.20); RDW 12.8 % (11.5-14.5); WBC 7.04 X 10*3/uL (4.50-10.00)
[2024-08-14 11:15] LABS: Chol/HDL Ratio 3.03 Ratio; Rheumatoid Factor, Qnt <15 IU/mL (0-15)
[2024-08-14 11:16] LABS: ALT 15 U/L (8-44); AST 27 U/L (13-35); Albumin 4.7 g/dL (3.8-4.9); Albumin/Globulin Ratio 1.68 Ratio (1.60-3.17); Alkaline Phosphatase 78 U/L (41-126); Blood Urea Nitrogen 11.7 mg/dL (9.0-27.0); Calcium 9.5 mg/dL (8.7-10.3); Carbon Dioxide 23.8 mmol/L (21.6-31.8); Chloride 101 mmol/L (96-109); Globulin 2.8 g/dL (1.6-3.3); Glucose 98 mg/dL (70-110); LDL Cholesterol,Calculated 81.8 mg/dL (0.0-131.0); Potassium 4.1 mmol/L (3.5-5.5); Sodium 139 mmol/L (135-145); Total Bilirubin 0.8 mg/dL (0.3-1.2); Total Protein 7.5 g/dL (6.2-8.2)
[2024-08-14 11:48] LABS: Erythrocyte Sedimentation Rate 14 mm/Hr (0-20)
[2024-08-14 13:40] LABS: Cyclic Citrull Pep IgG Unit <1.5 U/mL (<=3.9); Cyclic Citrullinated Pep IgG Negative
== END | disposition home or self-care (01) ==
LOC: LABWHC1 08:04
PROVIDERS: ATTEND Internal Medicine
DX: Z00.00 Encounter for general adult medical examination without abnormal findings (principal); R73.01 Impaired fasting glucose; E55.9 Vitamin D deficiency, unspecified; I73.00 Raynaud's syndrome without gangrene
CPT/HCPCS: 36415; 80053; 80061; 82652; 83036; 84443; 85025; 85652; 86038; 86200; 86431